=== PATIENT | female | born 2000 | race Caucasian/White ===

== ENCOUNTER 2021-04-18 17:03 | Emergency (ER) | payer OTHER, SELFPAY ==
[2021-04-18 17:26] VITALS: BP 128/67; PULSE 115; RESP 16; TEMP 38.8; O2SAT 100; BMI 26.2
--- NOTE | 2021-04-18 17:40 | ED.FEVER ---
HPI - Fever General Chief Complaint: Fever Stated Complaint: body aches, sore throat, headache, nausea Time Seen by Provider: 04/18/21 17:18 Source: patient Mode of arrival: Ambulatory Limitations: no limitations History of Present Illness HPI Narrative: 21-year-old female nonsmoker with noncontributory medical history presents with a chief complaint of sore throat, difficulty swallowing, swollen nodes, headache, fever and body aches for the past 24 hours. Patient is able to control secretions. She denies any cough, nausea or vomiting. She denies any change in bowel habits. She denies any dysuria, frequency or urgency. MD complaint: fever Onset (ago): day(s) Maximum Temperature: 102 F Temperature Source: oral Associated symptoms: myalgias, headache and sore throat Relieving factors: ibuprofen Exacerbating factors: swallowing Treatments prior to arrival fever: ibuprofen Related Data Allergies Allergy/AdvReac Type Severity Reaction Status Date / Time No Known Drug Allergies Allergy Verified 04/18/21 17:26 Review of Systems Constitutional Constitutional: Reports body ache(s), Reports chills, Denies fatigue, Reports fever(s), Denies frequent falls and Reports headache(s) Eyes Eyes: Denies change in vision, Denies eye discharge, Denies irritation and Denies loss of vision ENT Ears, Nose, Mouth, and Throat: Denies change in voice, Denies dizziness, Reports headache(s), Denies neck pain, Reports sore throat and Denies throat swelling Cardiovascular Cardiovascular: Denies chest pain, Denies irregular heart rhythm, Denies lightheadedness, Denies palpitations, Denies dyspnea, Denies dyspnea on exertion and Denies orthopnea Respiratory Respiratory: Denies cough, Denies dyspnea, Denies dyspnea on exertion and Denies wheezing Gastrointestinal Gastrointestinal: Denies abdominal pain, Denies change in bowel habits, Denies diarrhea, Denies nausea and Denies vomiting Musculoskeletal Musculoskeletal: Denies neck pain and Denies numbness Integumentary/Breasts Skin/Breast: Denies pruritus, Denies erythema, Denies rash and Denies wounds Neurologic Neurologic: Denies behavioral changes, Denies confusion, Denies dizziness, Denies frequent falls, Reports headache(s), Denies loss of vision and Denies numbness Psychiatric Psychiatric: Denies anxiety, Denies behavioral changes, Denies confusion, Denies depression, Denies homicidal ideation and Denies suicidal ideation Endocrine Endocrine: Denies fatigue, Denies flushing and Denies palpitations Hematologic/Lymphatic Hematologic/Lymphatic: Denies easy bruising Allergic/Immunologic Allergic/Immunologic: Denies urticaria, Denies throat swelling and Denies wheezing Patient History Social History Smoking Status: Current every day smoker Smoking Status: Current every day smoker alcohol intake frequency: a few times a week Substance Use Type: does not use Exam Narrative Exam Narrative: GENERAL: [21] year old patient appears stated age. Well-developed patient, in mild distress. HEAD: Atraumatic. Normocephalic. EYES: Pupils equal round and reactive. Extraocular motions intact. No scleral icterus. No injection or drainage. ENT: Nose without bleeding, purulent drainage. T posterior pharyngeal erythema with tonsillar exudate and swelling as well as soft palate petechiae no evidence of uvular pointing or suspicion of peritonsillar abscess. NECK: Trachea midline. No meningeal signs, tender anterior lymphadenopathy bilaterally CARDIOVASCULAR: Regular rate and rhythm without murmurs, gallops, or rubs. RESPIRATORY: Clear to auscultation. Breath sounds equal bilaterally. No wheezes, rales, or rhonchi. GASTROINTESTINAL: Abdomen soft, non-tender, nondistended. EXTREMITIES: No edema or joint tenderness. BACK: Nontender without deformity or crepitance. No flank tenderness. NEURO: AOx3. SKIN: No rash or erythema of visible areas Initial Vital Signs Initial Vital Signs: Vital Signs Temperature 101.9 F H 04/18/21 17:26 Pulse Rate 115 H 04/18/21 17:26 Respiratory Rate 16 04/18/21 17:26 Blood Pressure 128/67 04/18/21 17:26 Pulse Oximetry 100 04/18/21 17:26 Course Course Course Narrative: #66: Appropriate Testing for Patients with Pharyngitis [x] The patient has acute pharyngitis/tonsillitis. The patient was prescribed antibiotics today and a strep test or culture was performed. [SATISFIES MIPS PERFORMANCE] [] The patient has acute pharyngitis/tonsillitis and was prescribed antibiotics today. A strep test or culture was not performed because the patient meets one of the following: [MIPS PERFORMANCE EXCEPTION/EXCLUSION] [] Patient received a competing diagnosis. The patient?s competing diagnosis is [] (e.g. acute otitis media, chronic sinusitis, cellulitis, etc.) [] Patient is currently on antibiotics or has been in the last 30 days. [] Patient had a competing comorbid condition within the last 12 months. The patient?s comorbid condition is [] (e.g., tuberculosis, neutropenia, cystic fibrosis, chronic bronchitis, pulmonary edema, respiratory failure, rheumatoid lung disease) [] The patient has acute pharyngitis/tonsillitis. The patient was prescribed antibiotics today and a strep test or culture was not performed. [DOES NOT SATISFY MIPS PERFORMANCE] Orders Ordered: ED Orders 04/18/21 17:10 COVID19 -Nasal swab/Pre-Proc Stat Discontinued Medications Acetaminophen (Acetaminophen 325 Mg Tablet) 650 mg PO NOW ONE Stop: 04/18/21 17:36 Last Admin: 04/18/21 17:55 Dose: 650 mg Documented by: Penicillin G Benzathine (Penicillin G Benzathine 1,200,000 Unit/2 Ml Syringe) 1,200,000 unit IM NOW ONE Stop: 04/18/21 17:40 Last Admin: 04/18/21 17:55 Dose: 1,200,000 unit Documented by: Vital Signs Vital signs: Vital Signs - 8 hr 04/18/21 17:26 04/18/21 17:55 04/18/21 18:00 Temperature 101.9 F H 101.9 F H 101.4 F H Pulse Rate 115 H 99 H Respiratory Rate 16 18 Blood Pressure 128/67 128/67 Pulse Oximetry 100 97 MDM - Fever Lab Data Labs: Lab Results 04/18/21 Range/Units 17:10 SARS-CoV-2 (PCR) Negative (Negative) Point of Care Testing Rapid Strep A Positive Discharge Plan Departure Patient Disposition: Home Clinical Impression: Strep pharyngitis Instructions: DI for Strep Throat Activity Restrictions/Additional Instructions: *You have been diagnosed with [strep pharyngitis] *What to do: Take Tylenol and Motrin for aches, pains and fever. Drink plenty of fluids and get rest. You cannot return to work until you have been treated for at least 24 hours and have 24 hours without fever, and it doesn't count if you have to take Motrin or Tylenol to make the fever go away! *Please follow up with your primary care provider in 2-3 days, call for an appointment. Let them know you were seen in the Emergency Department and that we ask that you be seen in follow up. We will electronically transmit a record of today's note if your PCP is in our system *If you do not have a primary care provider please contact the [facility] Resource line at [phone]. They will ask some questions about your medical history and help get you set up with a doctor in the community. *Return to Emergency Department if you should have any new, worsening or concerning symptoms, such as [fever greater than 101 F, shaking chills, worsening pain, persistent vomiting or other bothersome symptoms] Referrals: [facility] [Outside]
[2021-04-18 17:50] LABS: COVID19 -Nasal RAPID Negative (Negative)
[2021-04-18 17:55] VITALS: TEMP 38.8
[2021-04-18] MEDS: PENICILLIN G BENZATHINE 1,200,000 UNIT/2 ML SYRINGE 1200000 UNIT IM (17:55)
[2021-04-18] MEDS: ACETAMINOPHEN 325 MG TABLET 650 MG PO (17:55)
[2021-04-18 18:00] VITALS: BP 128/67; PULSE 99; RESP 18; TEMP 38.6; O2SAT 97
[2021-04-18 18:16] VITALS: TEMP 38.8
[2021-04-18 18:30] VITALS: BP 125/67; PULSE 117; RESP 18; TEMP 37.7
--- NOTE | 2021-04-18 18:32 | PC.NURSE ---
No reaction to IM meds
== END 2021-04-18 18:30 | disposition home or self-care (01) ==
PROVIDERS: Emergency Medicine; Emergency Provider Emergency Medicine
DX: J02.0 Streptococcal pharyngitis (principal); R50.9 Fever, unspecified; Z20.822 Contact with and (suspected) exposure to COVID-19
CPT/HCPCS: 87635; 87880; 96372; 99283; C9803; J0561